=== PATIENT | female | born 1980 | race Caucasian/White ===

== ENCOUNTER 2021-06-07 06:16 | Emergency (ER) | payer OTHER ==
[~2021-06-07] VITALS: Ht 170.2 cm; Wt 77.1 kg
[2021-06-07] MEDS ORDERED: AMOX-CLAV 875-1 EAC5 (07:29)
[2021-06-07] MEDS ORDERED: CLIN300 PO (07:49)
[2021-06-07] MEDS ORDERED: HYDR1TAB94 PO (07:49)
== END 2021-06-07 08:53 | disposition home or self-care (01) ==
LOC: ER 06:16
DX: L03.211 Cellulitis of face (principal); K02.9 Dental caries, unspecified
CPT/HCPCS: 70487; 96365; 96375; 99283-25; A9270; J1100; J2405; J3010; Q9967

== ENCOUNTER 2021-10-22 04:08 | Emergency (ER) | payer OTHER ==
[~2021-10-22] VITALS: Ht 170.2 cm; Wt 81.7 kg
[~2021-10-22 04:08] MED LIST: AMOX-CLAV 875-1 EAC5; CLIN300 PO; HYDR1TAB94 PO
[2021-10-22] MEDS ORDERED: TRAM50 PO (06:26)
== END 2021-10-22 06:46 | disposition home or self-care (01) ==
LOC: ER 04:08
DX: R07.89 Other chest pain (principal); Z88.2 Allergy status to sulfonamides; Z88.5 Allergy status to narcotic agent; Z88.8 Allergy status to other drugs, medicaments and biological substances; Z88.6 Allergy status to analgesic agent; Z79.899 Other long term (current) drug therapy
CPT/HCPCS: 71045